=== PATIENT | male | born 1955 | race Caucasian/White ===

== ENCOUNTER → 2016-05-23 | Outpatient (CLI) | payer MEDICAID ==
[~2016-05-23] MED LIST: ADVAIR DISK28 PUFFS IN; ALEVE220 MG PO; AMLO5TAB PO; AMLODIPINE BES10 MG PO; ASPIRIN 81MG TA81 MG PO; BACTRIM DS 8001 TA1 PO; CLOPIDOGREL75 M1 PO; COMBIVENT INH14.7 GM IN; CYTOTEC 200MC200 MC1 PO; DULCOLAX STOOL100 MG PO; DUONEB 3 MG/3 ML3 ML IH; FAMILY PHARMAC325 MG PO; FAMOTIDINE 20MG20 MG PO; FERREX 150150 MG PO; FERROUS SULFAT200 M1 PO; GOOD NEIGHBOR P20 M1 PO; HYDROCODONE-APA1 TA1 PO; ISOSORBIDE MONO30 MG PO; LISINOPRIL HCTZ1 TAB PO; LISINOPRIL/HCTZ1 TA3 PO; MEDROL 4MG. DOSE4 MG PO; MIRALAX PO255 GM/BOT PO; NAPROSYN 500MG500 MG PO; NITROGLYCERIN0.4 MG SL; PANTOPRAZOLE SO40 MG PO; PERCOCET1 TAB PO; PRAVACHOL 40MG40 MG PO; PRAVACHOL20 MG PO; PRAVASTATIN 20M20 MG PO; PRILOSEC OTC20 MG PO; PRILOSEC10 MG PO; PRILOSEC40 MG PO; RANEXA500 M1 PO; SERTRALINE 100100 MG PO; SINGULAIR10 MG PO; TAMIFLU75 MG PO; TAMSULOSIN HCL0.4 MG PO; TYLENOL 325MG325 MG PO; ZOFRAN ODT4 MG PO
[2016-05-23 10:55] LABS: HEMOGLOBIN 15.6 g/dL (14.1-18.0); LYMPH # 1.1 K/mm3 (0.7-4.5); LYMPH % 36.8 % (10-50)
[2016-05-23 12:43] LABS: BUN 11 mg/dL (7-18); GFR (ESTIMATED) 75 ML/MIN (>60)
[2016-05-23 14:20] LABS: AEROMONAS NOT DETECTED (NOT DETECTE); ASTROVIRUS NOT DETECTED (NOT DETECTE); CYCLOSPORA CAYETANENSIS NOT DETECTED (NOT DETECTE); E COLI O157 NOT DETECTED (NOT DETECTE); ENTEROAGGREGATIVE E COLI NOT DETECTED (NOT DETECTE); ENTEROPATHOGENIC E COLI NOT DETECTED (NOT DETECTE); ENTEROTOXIGENIC E COLI NOT DETECTED (NOT DETECTE); NOROVIRUS NOT DETECTED (NOT DETECTE); SAPOVIRUS NOT DETECTED (NOT DETECTE); SHIGA-LIKE TOXIN PROD. E COLI NOT DETECTED (NOT DETECTE); SHIGELLA/ENTEROINVASIVE E COLI NOT DETECTED (NOT DETECTE); VIBRIO CHOLERAE NOT DETECTED (NOT DETECTE)
== END ==
LOC: LAB 10:42
PROVIDERS: Internal Medicine
DX: A08.4 Viral intestinal infection, unspecified (principal); I10 Essential (primary) hypertension

== ENCOUNTER → 2016-08-15 | Outpatient (CLI) | payer MEDICAID ==
--- NOTE | 2016-08-15 17:10 | RADIOLOGY REPORT PS360 ---
CERVICAL SPINE 4 OR 5 VIEWS Ordering Physician: Víctor Garrido MD Patient Age: 61 years: Male HISTORY: POSTERIOR NECK PAIN TECHNIQUE: Five-view cervical spine series. COMPARISON. Lateral views neck from a barium swallow 08/15/2013 FINDINGS Normal alignment the cervical spine. The vertebral bodies are intact. The prevertebral soft tissues normal. Multilevel degenerative disc space narrowing with associated cervical spondylosis Disc space narrowing most pronounced at C5-C6. Mild Diffuse posterior hypertrophic endplate ridging from marginal osteophytes most evident at this level. Uncovertebral joint Spurring yields moderate bilateral foraminal encroachment at C5-C6. Less pronounced disc space narrowing is seen at C4/5 and C6/7. Minor posterior marginal osteophytes ridging C6/7. C1-C2. Satisfactory. Appearance. Dens intact. Small old ossification less likely old fracture off the very posterior tip of C7 spinous process-unchanged since the 2013 study. Facets appear intact with only scant degenerative changes. Swimmer's view included with normal alignment at the cervical thoracic junction IMPRESSION. -- Degenerative disc space narrowing & cervical spondylosis-most pronounced at C5-C6.. Less pronounced disc space narrowing and degenerative changes C6/7 and C4/5..:
== END ==
LOC: RAD 16:19
DX: M54.2 Cervicalgia (principal)

== ENCOUNTER → 2017-01-27 | Outpatient (CLI) | payer MEDICAID ==
--- NOTE | 2017-01-27 15:28 | RADIOLOGY REPORT PS360 ---
ELBOW-RT-3 VIEWS HISTORY: Pain following injury RT ELBOW INJURY ORDERING PHYSICIAN: íVctor Garrido MD PATIENT AGE: 61 years COMPARISON: None FINDINGS: No fracture or dislocation. No displaced fat pad. 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 There is an enthesophyte at the olecranon nonspecific. IMPRESSION: 1. No acute finding. 2. Mild degenerative change
--- NOTE | 2017-01-27 15:28 | RADIOLOGY REPORT PS360 ---
ELBOW-RT-3 VIEWS HISTORY: Pain following injury RT ELBOW INJURY ORDERING PHYSICIAN: Víctor Garrido MD PATIENT AGE: 61 years COMPARISON: None FINDINGS: No fracture or dislocation. No displaced fat pad. 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 There is an enthesophyte at the olecranon nonspecific. IMPRESSION: 1. No acute finding. 2. Mild degenerative change
== END ==
LOC: RAD 15:09
DX: S59.901A Unspecified injury of right elbow, initial encounter (principal)